=== PATIENT | male | born 1950 | race Caucasian/White ===

== ENCOUNTER 2018-03-26 15:40 | Outpatient (CLI) | payer MEDICARE, OTHER ==
--- NOTE | 2018-03-27 23:26 | DN ---
DATE OF STUDY: 03/26/2018 PROCEDURE: Bilateral Doppler examination was performed on 03/26/2018. On the right, femoral, poplit eal, posterior tibial and dorsalis pedis waveforms are biphasic with good peaked wave forms. On the left, femoral, popliteal, posterior tibial and dorsalis pedis waveforms are biphasic with good peaked wave forms. Ankle brachial indices on the right, ankle brachial index is 1.01. On the left, ankle brachial index is 0.93. IMPRESSION: Normal Doppler study.
== END 2018-03-26 15:41 | disposition home or self-care (01) ==
LOC: ULT 15:40
PROVIDERS: ATTEND Podiatrist
DX: I73.9 Peripheral vascular disease, unspecified (principal); E11.9 Type 2 diabetes mellitus without complications
CPT/HCPCS: 93922

== ENCOUNTER 2018-10-25 10:37 | Outpatient (CLI) | payer MEDICARE, OTHER ==
[2018-10-25 12:46] LABS: #Basophils 0.1 thou/uL (0.0-0.2); #Eosinphils 0.2 thou/uL (0.0-0.7); #Lymphocytes 1.7 thou/uL (1.20-3.40); #Monocytes 0.5 thou/uL (0.11-0.59); %Basophils 0.9 % (0.0-1.0); %Eosinophils 2.5 % (0.0-10.0); %Lymphocytes 26.2 % (21.0-51.0); %Monocytes 7.9 % (0.0-10.0); %Neutrophils 62.6 % (42.0-75.0); Hemoglobin 12.1 g/dL (14.0-18.0); Mean Corpuscular HGB CONC 33.3 g/dL (32.0-36.0); Mean Corpuscular Hemoglobin 29.6 pg (27.0-31.0); Mean Corpuscular Volume 88.7 fL (78.0-98.0); Mean Platelet Volume 7.3 fL (7.4-10.4); Platelet Count 253 thou/uL (130-400); RBC Distribution Width 13.3 % (11.5-14.5); Red Blood Cell (RBC) Count 4.09 mill/uL (4.70-6.10); White Blood Cell (WBC) Count 6.3 thou/uL (4.8-10.8)
[2018-10-25 13:07] LABS: ALT (SGPT) 11 U/L (8-55); AST (SGOT) 13 U/L (5-34); Albumin 3.8 g/dL (3.4-4.8); Alkaline Phosphatase 90 U/L (40-150); Anion Gap 14 mmol/L (10-20); BUN (Urea Nitrogen) 23 mg/dL (8.4-25.7); Bilirubin, Total 0.4 mg/dL (0.2-1.2); Calc. Creatinine Clearance 0 mL/min (70-130); Calcium 9.7 mg/dL (7.8-10.44); Carbon Dioxide 23 mmol/L (23-31); Chloride 103 mmol/L (98-107); Estimated GFR-MDRD 47; Globulin 3.3 g/dL (2.4-3.5); Glucose 255 mg/dL (80-115); Potassium 4.1 mmol/L (3.5-5.1); Protein, Total 7.1 g/dL (5.8-8.1); Sodium 136 mmol/L (136-145)
--- NOTE | 2018-10-25 13:18 | RAD ---
TWO VIEWS CHEST: DATE: 10/25/2018. PROVIDED CLINICAL HISTORY: Preop. FINDINGS: Comparison 05/07/2013. Cardiac and mediastinal silhouette is within normal limits. Left subclavian c ardiac pacing device is again noted with the tips overlying the expected locations of RA and RV. No focal consolidation, pleural fluid, or pneumothorax apparent. IMPRESSION: No evidence for an acute cardiopulmonary process. POS: [facility]
--- NOTE | 2018-10-25 17:09 | EKG ---
Test Reason : Blood Pressure : / mmHG Vent. Rate : 079 BPM Atrial Rate : 079 BPM P-R Int : 140 ms QRS Dur : 120 ms QT Int : 424 ms P-R-T Axes : 047 093 035 degrees QTc Int : 486 ms Normal sinus rhythm Right bundle branch block Abnormal ECG When compared with ECG of 13-OCT-2013 07:34, Nonspecific T wave abnormality has replaced inverted T waves in Inferior leads Confirmed by ALCIRA VALENCIA, DR. Orta ([id number]) on 10/25/2018 5:09:06 PM Referred By: ENEDELIA Confirmed By:DR. Marivel ELI MD
== END 2018-10-25 10:38 | disposition home or self-care (01) ==
LOC: LABBT 10:37
PROVIDERS: ATTEND Internal Medicine Cardiovascular Disease
DX: Z01.818 Encounter for other preprocedural examination (principal)
CPT/HCPCS: 71045; 80053; 85025; 93005; 93010

== ENCOUNTER 2018-10-29 06:06 | Inpatient (IN) | payer MEDICARE, OTHER ==
[2018-10-29] MEDS ORDERED: Heparin 10,000 UNITS/1 ML VIAL ONE (06:32)
[2018-10-29] MEDS ORDERED: Fentanyl 100 MCG/2 ML VIAL ONE (07:07)
[2018-10-29] MEDS ORDERED: Midazolam HCl 2 mg/2 ml Vial ONE (07:07)
[2018-10-29 07:10] LABS: Cardiac Risk 4.8 (Less than 4.5)
[2018-10-29] MEDS ORDERED: Protamine Sulfate 50 MG/5 ML VIAL ONE ×2 (07:24)
[2018-10-29] MEDS ORDERED: Digoxin 0.25 MG TAB PO SCH (09:00)
[2018-10-29] MEDS ORDERED: Aspirin 325 mg Enteric Coated Tablet PO SCH (09:00)
[2018-10-29] MEDS ORDERED: [UNRECOGNIZED DRUG - REMARK] FS SCH (10:59)
--- NOTE | 2018-10-29 11:56 | HP ---
HISTORY: Reji Lei is a 68-year-old white male, wthat I have followed since March 2013. He was initially referred for 2 episodes of syncope. Both of these occur when he was walking and then he would find himself on the floor. He had an episode of supraventricular tachycardia on 30-day monitoring. He had an episode of wide-complex tachycardia. He underwent Lexiscan Cardiolite testing, which was probably normal without evidence of ischemia or fixed defect. It was felt that he should be admitted to undergo electrophysiology study. This was performed by Dr. Rodriguez. He did not have any inducible atrial or ventricular arrhythmias. With rapid atrial pacing, he did have right bundle-branch block aberrancy, which may have been the cause for his wide-complex tachycardia. He did have prolonged sinus node recovery times of 1721 milliseconds. It was felt that a permanent pacemaker was needed, which was placed by Dr. Rodriguez. He continued to have some syncopal episodes and I referred him back to Electrophysiology. They felt the recurrent syncope was most likely of noncardiac origin. There was no strong correlation between tachyarrhythmias seen on the pacemaker and his syncopal spells. However, there was some correlation between episode of atrial tachycardia and episode of chest pain. He was started on digoxin for increased vagal tone. In November 2013, he was placed on beta-jeremi. After starting the beta-jeremi, it did not appear that he had any further episodes of syncope. He has been followed in the office for his pacemaker and his hypercholesterolemia, although at times, he is noncompliant with the blood test for his cholesterol. He was going to undergo left foot surgery and so a cardiac PET test was scheduled. In the meantime, he apparently fell and fractured his ankle and had to go undergo operative repair of that in [place] and has an external fixation device in place. He underwent cardiac PET scanning, which revealed mild apical ischemia. There was moderate hypokinesis of the distal anterior wall, mild decreased myocardial thickening of the apex. With this finding, it was recommended that he will undergo cardiac catheterization. Risks of catheterization were discussed including , myocardial infarction, dye reaction, vascular injury, CVA, transfusion, limb loss, renal loss, etc. Also, risks of intervention with PTCA and/or stent placement were discussed - , myocardial infarction, emergent CABG, restenosis, stent thrombosis, vessel perforation, etc. With upcoming orthopedic surgery, it was felt that a bare- metal stent should be placed if needed. PAST MEDICAL HISTORY: Sleep apnea, hypercholesterolemia, hypertension, diabetes , recurrent syncope with prolonged sinus node recovery times. OPERATIONS: 1. Neck mass removal. 2. Pacemaker placement. 3. Previous leg surgeries. MEDICATIONS: 1. Simvastatin 40 mg daily. 2. Tresiba 100 units subcu. 3. NovoLog. 4. Metoprolol 200 ER q.a.m. 5. Jardiance 10 mg daily. 6. Metformin 1000 mg b.i.d. 7. Losartan 100 mg daily. 8. Doxycycline 100 mg daily. 9. Nifedipine 60 mg b.i.d. 10. Digoxin 0.25 mg daily. ALLERGIES: NONE. REVIEW OF SYSTEMS: A 10-point review of systems is unremarkable except as noted above. PHYSICAL EXAMINATION: VITAL SIGNS: Blood pressure 135/70, pulse of 75. HEENT: PERRL. NECK: Supple. CHEST: Clear. CARDIAC: S1 and S2 are normal without any S3, S4, or murmurs. ABDOMEN: Normal bowel sounds without tenderness. EXTREMITIES: Revealed trace edema of the left leg. No edema of the right leg. NEUROLOGICAL: Grossly intact. SKIN: Warm and dry. LABORATORY DATA: Pending. IMPRESSION: 1. Abnormal cardiac PET scan with finding of apical ischemia and wall motion abnormalities as noted above. It is recommended that he will undergo cardiac catheterization. 2. Preoperative cardiovascular examination prior to further orthopedic procedure on his left ankle and foot. 3. Status post cardiac pacemaker placement in April 2013. 4. Recurrent syncope prior to placement of the pacemaker. 5. History of supraventricular tachycardia. 6. History of wide-complex tachycardia, probably SVT with right bundle-branch block aberrancy, which was reproduced with rapid atrial pacing and electrophysiology study. 7. No inducible atrial or ventricular arrhythmias in electrophysiology study. 8. History of transient global amnesia. 9. Hypertension. 10. Hypercholesterolemia. 11. Diabetes. PLAN: The patient will undergo cardiac catheterization and indicated procedures. Risks have been discussed and he agrees to proceed. Job ID: [id number] MTDD
[2018-10-29] MEDS ORDERED: Iopamidol 370 76% 100 ML VIAL ONE (12:08)
[2018-10-29] MEDS ORDERED: Iopamidol 370 76% 50 ML VIAL FS ONE (12:08)
--- NOTE | 2018-10-29 12:29 | CON ---
DATE OF CONSULTATION: 10/29/2018 CHIEF COMPLAINT: Positive stress test. HISTORY OF PRESENT ILLNESS: The patient is a 68-year-old diabetic man with a history of supraventricular tachycardia, who has an external fixator. Fixator in place on his left lower extremity after the fracture of his ankle. Stress testing was done as a prelude to a more elective, more definitive repair of the fracture and that showed apical ischemia. Cardiac catheterization today demonstrated severe 3-vessel coronary artery disease including proximal LAD disease. PAST MEDICAL HISTORY: His past medical history is significant for hypertension, diabetes, supraventricular tachycardia, hypercholesterolemia. He has undergone dual-chamber pacemaker implantation. CURRENT MEDICATIONS: 1. Toprol-XL 200 mg a day. 2. Procardia XL 60 mg b.i.d. 3. Losartan 100 mg a day. 4. Digoxin 0.25 mg a day. 5. Zocor 40 mg at bedtime. 6. NovoLog insulin 35 units subcu t.i.d. 7. Metformin 1000 mg p.o. b.i.d. ALLERGIES: HE DENIES ANY MEDICAL ALLERGIES. SOCIAL HISTORY: He has never smoked. FAMILY HISTORY: Significant for recently diagnosed diabetes in his 90-year-old mother and diabetes in a younger sister. His father of complications related to lupus. He has no known history of coronary artery disease or cerebral vascular disease amongst first-degree relatives. REVIEW OF SYSTEMS: Negative for any transient eye, speech, facial, or extremity symptoms consistent with TIAs. He does have some persistent paresthesias and numbness in his left fourth and fifth fingers. He has not had any recent illnesses. PHYSICAL EXAMINATION: GENERAL: He is 6 feet tall, weighs 200 pounds, heart rate 61, blood pressure 150/74. HEENT: He has no xanthelasma. No JVD. No carotid bruits. CHEST: Clear to auscultation. He has a well-healed surgical scar. No palpable pacemaker in the left upper chest. He has regular rate and rhythm without obvious murmur or gallop. ABDOMEN: Soft and nontender. He has easily palpable radial pulses. His dorsalis pedis pulses are harder to appreciate but are palpable. He has an external fixator on his left lower leg and foot with swelling of that foot. He has no swelling of other foot. NEUROLOGIC: Grossly nonfocal. LABORATORY DATA: Showed a white count of 6.3, hemoglobin 12.1, hematocrit 36.3, and platelets 253,000. Electrolytes were normal. Glucose was 255, BUN 23, creatinine 1.48, calcium 9.7, protein 7.1, albumin 3.8. Triglycerides were 142, cholesterol 183, LDL 117, and HDL 38. His chest x-ray shows a relatively small heart, no obvious aortic knob calcifications, clear lung aguilera, and a dual-chamber pacemaker in place with lead insertion appearing to be left subclavian. Cardiac catheterization shows a right-dominant system. The mid right coronary proper has diffuse irregularity with one or two focal 60% lesions and then about 70% or 80% lesion proximally in his relatively large posterolateral branch. His left main is normal. He has a long 80% or so lesion in the LAD starting just proximal to the first septal indoor plant technician and appearing to extend into relatively high first diagonal. He has about a 90% lesion in an OM1 that bifurcates out towards the apex, very small OM2, and then diffuse irregularity with at least two 60% or 70% lesions in circumflex leading out to the terminal obtuse marginal. LVEF is around 50% to 60%. LV pressures were 147/0 with an EDP of 4 and 134/1 with an EDP of 7. Aortic pressure on pullback from 147/0 reading was 138/45 with a mean of 80. IMPRESSION AND RECOMMENDATIONS: Diabetic man with an asymptomatic proximal left anterior descending lesion in the face of diffuse 3-vessel coronary disease. I have discussed with him that there is a paucity of data to support the contention that coronary revascularization decreases risk in that prior to other surgical procedures that his pattern of coronary artery disease in the face of his diabetes is one for which surgical revascularization is recommended even in the asymptomatic setting as this would appear to be. I will plan on hydrating him during the day today and doing coronary artery bypass grafting tomorrow. Job ID: [id number]
[2018-10-29] MEDS ORDERED: CEFAZOLIN 2 GM/50 ML-DEXTROSE 2 GM in Premix Bag 1 BAG IVPB SCH (19:15)
[2018-10-29] MEDS: Mupirocin 2% Ointment 22 GM Tube TOP SCH ×2 (19:57→21:16)
[2018-10-29] MEDS: NIFEdipine XL 60 MG TAB PO SCH ×2 (19:57→21:16)
[2018-10-29] MEDS: Doxycycline 100 MG CAP PO SCH ×2 (19:57→21:15)
[2018-10-29] MEDS: Losartan 25 MG TAB PO SCH (19:57)
[2018-10-29] MEDS: Sodium Chloride 0.45% 1,000 ML IV SCH ×2 (19:58→21:17)
[2018-10-29] MEDS ORDERED: HumaLOG 300 UNITS/3 ML VIAL SC PRN ×2 (20:34)
[2018-10-29] MEDS ORDERED: Dextrose 5% in Water 1,000 ML IV PRN (20:34)
[2018-10-29] MEDS ORDERED: Dextrose 50% Abboject 50 ML SYRINGE SLOW IVP PRN (20:34)
[2018-10-29] MEDS ORDERED: Sodium Chloride 0.9% 1,000 ML IV SCH (20:38)
[2018-10-29] MEDS ORDERED: Nitroglycerin 0.4 MG TAB (25 Tab Bottle) SL PRN (20:38)
[2018-10-29] MEDS ORDERED: traMADol HCl 50 MG TAB PO PRN (20:38)
[2018-10-29] MEDS ORDERED: Acetaminophen/Codeine 30-300mg Tablet PO PRN ×2 (20:38)
[2018-10-29] MEDS ORDERED: Sodium Chloride 0.9% 200 ML IV SCH (20:38)
[2018-10-29] MEDS ORDERED: Docusate 100 MG CAP PO SCH (21:00)
[2018-10-29] MEDS ORDERED: Rosuvastatin 20 MG TAB PO SCH (21:00)
[2018-10-29] MEDS ORDERED: Atorvastatin Calcium 40 MG TAB PO SCH (21:00)
[2018-10-29] MEDS: Famotidine 20 MG TAB PO SCH (23:53)
[2018-10-30] MEDS: Sodium Chloride 0.45% 1,000 ML IV SCH (01:47)
--- NOTE | 2018-10-30 03:12 | CON ---
DATE OF CONSULTATION: PRIMARY CARE PHYSICIAN: Fer Chris in [place]. PRIMARY TEAM: Cardiology, Dr. Diaz. REASON FOR CONSULTATION: Medical management. HISTORY OF PRESENT ILLNESS: This is a 68-year-old white male with a known history of insulin-dependent diabetes mellitus, hypertension, and hyperlipidemia, who recently had a fracture of his foot, had some osteomyelitis, complicating plate placement in his foot, and then had a fracture of his leg from a amber that was placed during the previous surgery. He was being cleared for another surgery, had a stress test done that was abnormal, and so Dr. Diaz admitted him today to do a cardiac catheterization. The patient has not had any cardiac symptoms. No chest pain. No palpitations. No difficulty breathing. He had his cardiac catheterization earlier this morning, this showed 3-vessel disease including his left anterior descending, and so Dr. Diaz consulted Dr. Cordon with Cardiovascular Surgery for CABG, plan is to do that tomorrow morning. PAST MEDICAL HISTORY: 1. Diabetes mellitus type 2, on insulin for the last 5 years, complicated by diabetic retinopathy. 2. Symptomatic bradycardia with pacemaker placement. 3. Hypertension. 4. Hyperlipidemia. 5. Obstructive sleep apnea, on CPAP nightly, followed by Dr. Osullivan. PAST SURGICAL HISTORY: 1. Pacemaker placement in 2012. 2. Right ankle surgery. 3. Laser surgery to the eye. 4. Neck surgery. 5. Left foot fracture and left leg fracture, status post multiple surgeries. ALLERGIES: ATORVASTATIN CAUSES NUMBNESS IN HANDS, OTHER STATINS DO NOT CAUSE THIS. CURRENT MEDICATIONS: 1. Metformin 1000 mg twice a day. 2. Digoxin 0.25 mg daily. 3. Doxycycline 100 mg twice a day. 4. NovoLog 35 units subcu before each meal. 5. Losartan 100 mg daily. 6. Metoprolol-XL 200 mg daily. 7. Bactroban ointment applied to wounds on left foot and leg. 8. Procardia XL 60 mg twice a day. 9. Simvastatin 40 mg at night. SOCIAL HISTORY: The patient is , lives with his . No tobacco, alcohol, or illicit drug use. FAMILY HISTORY: Significant for father with a questionable history of lupus, mother with diabetes, and a younger sister with diabetes as well. REVIEW OF SYSTEMS: CONSTITUTIONAL: No fevers. No chills. He has had some significant weight loss after being in the hospitals for so long for his left foot. EYES: No double vision or blurred vision. ENT: No congestion or drainage or sore throat. CARDIOVASCULAR: No chest pain. No palpitations or racing heart. PULMONARY: He has had a little bit of cough with minimal sputum for the last couple of weeks. No shortness of breath. No wheezing. GASTROINTESTINAL: No abdominal pain. No nausea or vomiting. No diarrhea or constipation. GENITOURINARY: No dysuria or hematuria. MUSCULOSKELETAL: See HPI. No other musculoskeletal complaints besides his left leg and foot. NEUROLOGIC: He has some chronic numbness in bilateral lower extremities from his diabetes. Otherwise, no numbness, tingling, or focal weakness. PHYSICAL EXAMINATION: VITAL SIGNS: Blood pressure 161/73, pulse 60, respirations 16, O2 saturation 95% on room air, and temperature 97.9. GENERAL: This is a well-developed, well-nourished white male, in no acute distress. HEENT: Pupils equal, round, and reactive to light. Oropharynx is clear without lesions, erythema, or exudate. NECK: Supple. No lymphadenopathy. No thyroid nodules or enlargement. No JVD. HEART: Regular rate and rhythm. No murmurs, rubs, or gallops. LUNGS: Clear to auscultation bilaterally. No wheezes, crackles, or rhonchi. ABDOMEN: Soft, nontender to palpation. Normoactive bowel sounds. No hepatosplenomegaly or other masses. EXTREMITIES: The patient has fixation rods and a cage over his left leg and foot. No surrounding cellulitis or evidence of infection. SKIN: No rashes or other lesions. NEUROLOGIC: He has intact strength and sensation in all extremities. No facial droop. PSYCHIATRIC: Alert and oriented x3. Normal mood and affect. LABORATORY DATA: CBC done preoperatively showed a normal white blood cell count, hemoglobin of 12.1, hematocrit 36.3, and platelet count 253. Coagulation profile showed a normal clotting time. Complete metabolic panel showed elevated creatinine of 1.48 and glucose of 255, the rest is normal. His lipid profile showed a total cholesterol of 183, LDL of 117, triglycerides were 142. ASSESSMENT: 1. Three-vessel coronary artery disease. Plan for coronary artery bypass graft in the morning. 2. Hypertension, currently elevated. Resuming home blood pressure medications and this will be controlled carefully after the surgery anibal in the ICU. 3. Diabetes mellitus type 2, insulin dependent. We will give insulin as scheduled with meals and we will give him moderate sliding scale coverage. We will hold metformin for now due to his elevated creatinine and recent cardiac catheterization and planned CABG. 4. Hyperlipidemia. Resume the patient's statin. 5. Gastrointestinal prophylaxis. We will put the patient on Pepcid twice a day. 6. Code status: The patient is a full code. Should he be incapacitated, his would be his medical decision maker, her name is Kaylee Lei. Job ID: [id number]
[2018-10-30] MEDS: Losartan 25 MG TAB PO SCH (05:29)
[2018-10-30] MEDS ORDERED: CEFAZOLIN 2 GM/50 ML BAG ONE (06:14)
[2018-10-30] MEDS ORDERED: Albumin 5% 500 ML ONE (06:30)
[2018-10-30] MEDS ORDERED: Heparin 10,000 UNITS/1 ML VIAL 30,000 UNITS in Sodium Chloride 0.9% 1,000 ML FS SCH (06:45)
[2018-10-30] MEDS ORDERED: Dexamethasone 4 mg/ml Vial ONE (07:12)
[2018-10-30] MEDS ORDERED: Bupivacaine HCl 0.5%/Epinephrine 1:200,000/PF 30 ml Vial ONE (07:12)
[2018-10-30] MEDS ORDERED: Fentanyl 250 MCG/5 ML VIAL ONE (07:15)
[2018-10-30] MEDS ORDERED: Dexmedetomidine 200 MCG/2 ML VIAL ONE (07:16)
[2018-10-30] MEDS ORDERED: Midazolam HCl 5 mg/5 ml Vial ONE (07:16)
[2018-10-30] MEDS ORDERED: Midazolam HCl 2 mg/2 ml Vial ONE (07:20)
[2018-10-30] MEDS ORDERED: HumaLOG 300 UNITS/3 ML VIAL SC SCH (08:00)
[2018-10-30] MEDS ORDERED: Nitroglycerin 50 MG/250 ML BOT 250 ML IVPB PRN (12:20)
[2018-10-30] MEDS ORDERED: Potassium Chloride 20 MEQ/100 ML PREMIX BAG IVPB PRN (12:20)
[2018-10-30] MEDS ORDERED: niCARdipine HCl 25 MG in Sodium Chloride 0.9% 250 ML 240 ML IVPB PRN (12:20)
[2018-10-30] MEDS ORDERED: Post-Op Insulin Drip Protocol IVPB ONE (12:20)
[2018-10-30] MEDS ORDERED: Morphine 2 MG/ML SYRINGE SLOW IVP PRN (12:20)
[2018-10-30] MEDS ORDERED: HYDROcodone/Acetaminophen 5/325 mg Tablet PO PRN (12:20)
[2018-10-30] MEDS ORDERED: Ondansetron PF 4 MG/2 ML Vial IVP PRN (12:20)
[2018-10-30] MEDS ORDERED: Bisacodyl 10 MG SUPP PR PRN (12:20)
[2018-10-30] MEDS ORDERED: Fentanyl 100 MCG/2 ML VIAL SLOW IVP PRN (12:20)
[2018-10-30] MEDS ORDERED: Acetaminophen 325 MG TAB PO PRN (12:20)
[2018-10-30] MEDS ORDERED: CEFAZOLIN/Water 2 GM/20 ML SYRINGE SLOW IVP SCH (12:20)
[2018-10-30] MEDS ORDERED: Guaifenesin DM 100-10/5 ML UDCUP PO PRN (12:20)
[2018-10-30] MEDS ORDERED: DOPamine 400 MG/D5W 250 ML 250 ML IVPB PRN (12:20)
[2018-10-30] MEDS ORDERED: Promethazine HCl 25 MG/ML VIAL IM PRN (12:20)
[2018-10-30] MEDS ORDERED: Mag-Al 1200 mg/1200 mg/30 ML UDCUP PO PRN (12:20)
[2018-10-30] MEDS ORDERED: Hetastarch 6% 500 ML 500 ML IVPB PRN (12:20)
[2018-10-30] MEDS ORDERED: hydrALAZINE 20 MG/ML VIAL SLOW IVP PRN (12:20)
[2018-10-30] MEDS ORDERED: Bisacodyl 5 MG TAB PO PRN (12:20)
[2018-10-30] MEDS ORDERED: Dextrose 5% in Water 1,000 ML IV PRN (12:54)
[2018-10-30] MEDS ORDERED: HUMULIN R 100 UNITS in Sodium Chloride 0.9% 100 ML IVPB SCH (12:54)
[2018-10-30] MEDS ORDERED: Dextrose 50% Abboject 50 ML SYRINGE SLOW IVP PRN (12:54)
[2018-10-30 12:56] LABS: #Eosinphils 0.1 thou/uL (0.0-0.7); #Lymphocytes 1.5 thou/uL (1.20-3.40); #Neutrophils 6.6 thou/uL (1.40-6.50); %Basophils 0.4 % (0.0-1.0); %Eosinophils 1.1 % (0.0-10.0); %Lymphocytes 16.1 % (21.0-51.0); %Monocytes 10.5 % (0.0-10.0); %Neutrophils 71.9 % (42.0-75.0); Hemoglobin 9.6 g/dL (14.0-18.0); Mean Corpuscular HGB CONC 33.3 g/dL (32.0-36.0); Mean Corpuscular Hemoglobin 29.4 pg (27.0-31.0); Mean Corpuscular Volume 88.2 fL (78.0-98.0); Mean Platelet Volume 6.9 fL (7.4-10.4); Platelet Count 181 thou/uL (130-400); Red Blood Cell (RBC) Count 3.27 mill/uL (4.70-6.10); White Blood Cell (WBC) Count 9.2 thou/uL (4.8-10.8)
[2018-10-30 13:03] LABS: INR-International Normal Ratio 1.4; PTT 25.5 SEC (22.9-36.1); Prothrombin Time 16.8 SEC (12.0-14.7)
[2018-10-30] MEDS: Fentanyl 100 MCG/2 ML VIAL SLOW IVP PRN ×3 (13:08→16:44)
[2018-10-30 13:10] LABS: Actual Bicarbonate (HCO3a) 21.1 mEq/L (22-28); Base Excess (BEa) -3.1 mEq/L (-2.0 to +3.0); CO2 Tension 34.7 mmHg (35.0-45.0); Calcium, Ionized 1.25 mmol/L (1.12-1.30); Carboxyhemoglobin (COHb) 0.5 gm% (0.0-3.0); Hemoglobin (Hb) 10.3 g/dL (14.0-18.0); O2 Tension (PaO2) 253.6 mmHg (> 80.0); Potassium - ABG Lab 3.89 mmol/L (3.70-5.30)
[2018-10-30] MEDS: Sodium Chloride 0.9% 1,000 ML IV SCH ×2 (13:10→23:07)
[2018-10-30 13:11] LABS: ALV-art Gradient 130.825 (0-20); Puncture Site ALINE
[2018-10-30 13:16] LABS: Anion Gap 9 mmol/L (10-20); BUN (Urea Nitrogen) 19 mg/dL (8.4-25.7); Calc. Creatinine Clearance 75 mL/min (70-130); Calcium 8.8 mg/dL (7.8-10.44); Carbon Dioxide 23 mmol/L (23-31); Chloride 110 mmol/L (98-107); Estimated GFR-MDRD 60; Glucose 102 mg/dL (80-115); Potassium 4.1 mmol/L (3.5-5.1); Sodium 138 mmol/L (136-145)
[2018-10-30] MEDS: Famotidine 20 MG TAB PO SCH (13:27)
--- NOTE | 2018-10-30 13:37 | RAD ---
PORTABLE CHEST: DATE: 10/30/2018. PROVIDED CLINICAL HISTORY: Post open heart. FINDINGS: Comparison 10/25/2018. Median sternotomy changes are now seen. Left subclavian cardiac pacing device is again noted with lead tips in the similar positions. Endotracheal tube was present with tip whic h projects in the region of the thoracic inlet. Right subclavian central line is noted, the tip of w hich overlies the expected location of right atrium. The supine nature of the study limits sensitiv ity for detection of pneumothorax. Parenchymal opacity at the medial right lung apex is noted. IMPRESSION: 1. Interval postoperative change. 2. Parenchymal opacity at the medial right lung apex which may reflect subsegmental atelectasis. As piration could also be considered. Followup is recommended. POS: [facility]
[2018-10-30] MEDS ORDERED: Norepinephrine 8 MG/0.9% NS 250 ML ONE (13:45)
--- NOTE | 2018-10-30 13:50 | OP ---
DATE OF PROCEDURE: 10/30/2018 PREOPERATIVE DIAGNOSIS: Coronary artery disease. PROCEDURES PERFORMED: Coronary artery bypass graft x4, good quality BRAND with 2 mm LAD, saphenous vein satisfactory to a 1.5 mm diagonal and probably a 1.5 mm right posterior lateral in the groove, radial artery to an obtuse marginal one, 1.5 to 2 mm. SEMICONDUCTOR ENGINEER: Bhanu Cordon MD. DESCRIPTION OF PROCEDURE: After adequate anesthesia had been obtained, the patient was prepped and draped and I did a left radial artery harvest, ensuring good collateral flow with Roderick test and plethysmography, while Dr. Cordon did an endovascular vein harvest of the right greater saphenous vein. Following completion of the radial harvest, I performed a median sternotomy harvesting a left internal mammary artery without entering the chest. The patient was heparinized. Mammary divided distally and passed posterior to the thymus gland. The aorta and right atrium were cannulated. Cardiopulmonary bypass begun. After inspecting vessels for grafting, the aorta was cross clamped and liter of cold blood cardioplegia was given and the four distal anastomosis completed. Distal circumflex was too small to graft. Following completion of this, the cross-clamp was removed, partial occluding clamp placed into venous anastomosis, placed on the aortic root and marked with rings into the hobbs of the diagonal graft with the radial anastomosis placed. Following this, the patient was weaned from cardiopulmonary bypass. Cannula was removed. Protamine was given systemically and the aortic cannulation site secured with a 4-0 Prolene suture. Temporarily, atrial pacing wires were placed. The sternum was reapproximated over two mediastinal drains with #7 interrupted wire using vancomycin paste on the sternal edges, platelet rich blood, and platelet poor plasma. The patient was taken to the ICU in guarded condition. Job ID: [id number]
[2018-10-30] MEDS ORDERED: Albumin 25% 25 GM/100 ML BOT ONE (16:56)
[2018-10-30] MEDS ORDERED: PROPOFOL 200 MG/20 ML VIAL ONE (16:56)
[2018-10-30] MEDS ORDERED: Cardioplegic Soln 1,000 ML BAG ONE (16:56)
[2018-10-30] MEDS ORDERED: Magnesium 5 GM/10 ML VIAL ONE (16:56)
[2018-10-30] MEDS ORDERED: Sodium Bicarb 50 MEQ/50 ML VIAL ONE (16:56)
[2018-10-30] MEDS ORDERED: Aminocaproic Acid 5 GM/20 ML VIAL ONE (16:56)
[2018-10-30] MEDS ORDERED: Lidocaine 2% PF 100 mg/5 ml Syringe ONE (16:56)
[2018-10-30] MEDS ORDERED: Mannitol 12.5 GM/50 ML ONE (16:56)
[2018-10-30] MEDS ORDERED: Potassium Chloride 60 MEQ/30 ML VIAL ONE (16:56)
[2018-10-30] MEDS ORDERED: Vecuronium 10 MG VIAL ONE (16:56)
[2018-10-30] MEDS ORDERED: Thrombin 5000 UNITS/5 ML VIAL ONE (16:56)
[2018-10-30] MEDS ORDERED: Calcium Chloride 1 GM/10 ML Abboject SYRINGE ONE (16:56)
[2018-10-30] MEDS ORDERED: Papaverine 60 MG/2 ML VIAL ONE (16:56)
[2018-10-30] MEDS ORDERED: Heparin 30,000 units/30 ml VIAL ONE (16:56)
[2018-10-30] MEDS ORDERED: Protamine Sulfate 250 MG/25 ML VIAL ONE (16:56)
[2018-10-30] MEDS ORDERED: Heparin 5,000 UNITS/ML VIAL ONE (16:56)
--- NOTE | 2018-10-30 17:00 | EKG ---
Test Reason : POST CABG Blood Pressure : / mmHG Vent. Rate : 069 BPM Atrial Rate : 069 BPM P-R Int : 100 ms QRS Dur : 122 ms QT Int : 432 ms P-R-T Axes : -27 078 033 degrees QTc Int : 462 ms Electronic atrial pacemaker Right bundle branch block Abnormal ECG When compared with ECG of 25-OCT-2018 11:32, Electronic atrial pacemaker has replaced Sinus rhythm ST elevation now present in Anterior leads Confirmed by DR. Alice MELLO ([id number]) on 10/30/2018 5:00:02 PM Referred By: RITA Confirmed By:DR. Alice MELLO
[2018-10-30 18:37] LABS: Hemoglobin 9.8 g/dL (14.0-18.0)
[2018-10-30] MEDS: HYDROcodone/Acetaminophen 5/325 mg Tablet PO PRN (18:42)
[2018-10-30 18:51] LABS: Potassium 4.5 mmol/L (3.5-5.1)
[2018-10-30] MEDS ORDERED: Famotidine/PF 20 mg/2ml Vial SLOW IVP SCH (21:00)
[2018-10-30] MEDS: CEFAZOLIN 2 GM/50 ML-DEXTROSE 2 GM in Premix Bag 1 BAG IVPB SCH (21:08)
[2018-10-31] MEDS: CEFAZOLIN 2 GM/50 ML-DEXTROSE 2 GM in Premix Bag 1 BAG IVPB SCH ×2 (04:16→11:54)
[2018-10-31 04:21] LABS: #Monocytes 0.8 thou/uL (0.11-0.59); #Neutrophils 6.3 thou/uL (1.40-6.50); %Basophils 0.4 % (0.0-1.0); %Eosinophils 0.2 % (0.0-10.0); %Lymphocytes 12.2 % (21.0-51.0); %Neutrophils 77.2 % (42.0-75.0); Hemoglobin 9.8 g/dL (14.0-18.0); Mean Corpuscular HGB CONC 32.9 g/dL (32.0-36.0); Mean Corpuscular Hemoglobin 29.6 pg (27.0-31.0); Mean Corpuscular Volume 90.1 fL (78.0-98.0); Mean Platelet Volume 6.8 fL (7.4-10.4); Platelet Count 193 thou/uL (130-400); RBC Distribution Width 13.3 % (11.5-14.5); White Blood Cell (WBC) Count 8.1 thou/uL (4.8-10.8)
[2018-10-31 04:39] LABS: Anion Gap 12 mmol/L (10-20); BUN (Urea Nitrogen) 20 mg/dL (8.4-25.7); Calc. Creatinine Clearance 74 mL/min (70-130); Calcium 8.7 mg/dL (7.8-10.44); Carbon Dioxide 21 mmol/L (23-31); Chloride 109 mmol/L (98-107); Estimated GFR-MDRD 59; Glucose 135 mg/dL (80-115); Potassium 4.7 mmol/L (3.5-5.1); Sodium 137 mmol/L (136-145)
[2018-10-31] MEDS: HYDROcodone/Acetaminophen 5/325 mg Tablet PO PRN ×3 (05:06→19:33)
--- NOTE | 2018-10-31 08:28 | RAD ---
CHEST ONE VIEW: History: Follow up open heart surgery. Comparison: 10-30-18 FINDINGS: Post underlying sternotomy. Left ICD. Right central line. Endotracheal tube has been removed. Minimal bibasilar linear and parenchymal changes, nonspecific, possibly mild subsegmental atelectasis and/or post-operative change. No pneumothorax. IMPRESSION: Patchy bibasilar parenchymal changes, overall stable. No pneumothorax or other new process. POS: [facility]
[2018-10-31] MEDS: Digoxin 0.25 MG TAB PO SCH (09:24)
[2018-10-31] MEDS: Doxycycline 100 MG CAP PO SCH ×2 (09:25→21:22)
[2018-10-31] MEDS: Aspirin 325 MG TAB PO SCH (09:25)
[2018-10-31] MEDS: Enoxaparin Sodium 40 MG/0.4 ML SYRINGE SC SCH (09:26)
[2018-10-31] MEDS: HumaLOG 300 UNITS/3 ML VIAL SC SCH ×3 (09:27→21:21)
[2018-10-31] MEDS: Metoprolol Tartrate 25 MG TAB PO SCH ×2 (09:33→21:22)
[2018-10-31 14:33] LABS: Actual Bicarbonate (HCO3a) 23.3 mEq/L (22-28); Analyzer IN Cardio OR; Base Excess (BEa) -0.2 mEq/L (-2.0 to +3.0); CO2 Tension 33.7 mmHg (35.0-45.0); Calcium, Ionized 1.11 mmol/L (1.12-1.30); Hemoglobin (Hb) 10.7 g/dL (14.0-18.0); O2 Tension (PaO2) 299.9 mmHg (> 80.0); Potassium - ABG Lab 4.38 mmol/L (3.70-5.30); pH, Arterial 7.46 (7.35-7.45)
[2018-10-31 14:34] LABS: Analyzer IN Cardio OR; Base Excess (BEa) -2.4 mEq/L (-2.0 to +3.0); CO2 Tension 41.8 mmHg (35.0-45.0); Calcium, Ionized 1.16 mmol/L (1.12-1.30); Carboxyhemoglobin (COHb) 0.3 gm% (0.0-3.0); Hemoglobin (Hb) 10.3 g/dL (14.0-18.0); O2 Tension (PaO2) 490.1 mmHg (> 80.0); Potassium - ABG Lab 3.87 mmol/L (3.70-5.30); pH, Arterial 7.36 (7.35-7.45)
[2018-10-31 14:34] LABS: Actual Bicarbonate (HCO3a) 24.5 mEq/L (22-28); Analyzer IN Cardio OR; Base Excess (BEa) -0.8 mEq/L (-2.0 to +3.0); CO2 Tension 43.6 mmHg (35.0-45.0); Calcium, Ionized 1.25 mmol/L (1.12-1.30); Carboxyhemoglobin (COHb) 0.1 gm% (0.0-3.0); Hemoglobin (Hb) 7.9 g/dL (14.0-18.0); Potassium - ABG Lab 4.26 mmol/L (3.70-5.30); pH, Arterial 7.37 (7.35-7.45)
[2018-10-31 14:34] LABS: Actual Bicarbonate (HCO3a) 23.7 mEq/L (22-28); Analyzer IN Cardio OR; Base Excess (BEa) -0.8 mEq/L (-2.0 to +3.0); Calcium, Ionized 1.07 mmol/L (1.12-1.30); Carboxyhemoglobin (COHb) 0.6 gm% (0.0-3.0); Hemoglobin (Hb) 7.4 g/dL (14.0-18.0); Potassium - ABG Lab 4.05 mmol/L (3.70-5.30); pH, Arterial 7.41 (7.35-7.45)
[2018-10-31 14:35] LABS: Analyzer IN Cardio OR; Base Excess (BEa) -2.3 mEq/L (-2.0 to +3.0); CO2 Tension 35.5 mmHg (35.0-45.0); Calcium, Ionized 1.29 mmol/L (1.12-1.30); Carboxyhemoglobin (COHb) 0.3 gm% (0.0-3.0); Hemoglobin (Hb) 7.9 g/dL (14.0-18.0); Potassium - ABG Lab 4.09 mmol/L (3.70-5.30); pH, Arterial 7.41 (7.35-7.45)
[2018-10-31 14:36] LABS: Puncture Site ALINE
[2018-10-31 14:37] LABS: O2 Tension (PaO2) 509.1 mmHg (> 80.0); Puncture Site ALINE
[2018-10-31 14:38] LABS: O2 Tension (PaO2) 558.4 mmHg (> 80.0); Puncture Site ALINE
[2018-10-31 14:39] LABS: Puncture Site ALINE
[2018-10-31 14:40] LABS: Puncture Site ALINE
[2018-10-31] MEDS: Sodium Chloride 0.9% 1,000 ML IV SCH ×2 (16:10→23:15)
[2018-10-31] MEDS ORDERED: Rosuvastatin 20 MG TAB PO SCH (21:00)
[2018-10-31] MEDS: Insulin Regular 300 UNITS/3 ML VIAL SC PRN (21:23)
--- NOTE | 2018-10-31 22:47 | PDOC.PN ---
- Subjective Encounter Start Date: 10/31/18 Encounter Start Time: 14:00 Patient seen and examined for med mngt. No new complaints. No overnight events - Objective Resuscitation Status - Order Detail: 10/29/18 20:35 Resuscitation Status Routine Resuscitation Status: FULL: Full Resuscitation Discussed with: Patient CORBY Reviewed: Yes Vital Signs & Weight: Vital Signs (12 hours) Temp Pulse Ox 10/31/18 20:00 97.7 F 95 10/31/18 16:00 96 10/31/18 15:00 98.3 F 10/31/18 11:00 97.8 F Weight Weight 200 lb Most Recent Monitor Data Heart Rate from ECG 80 NIBP 125/48 NIBP BP-Mean 92 Respiration from ECG 15 SpO2 96 I&O: 10/30/18 10/31/18 11/01/18 06:59 06:59 06:59 Intake Total 1380 2508.9 1667 Output Total 1300 875 470 Balance 80 1633.9 1197 Result Diagrams: 10/31/18 04:17 10/31/18 04:17 Additional Labs: Accuchecks 10/31/18 10/31/18 10/31/18 21:09 15:30 12:10 POC Glucose 161 H 120 H 118 H 10/31/18 10/31/18 10/31/18 09:35 08:39 07:31 POC Glucose 157 H 145 H 157 H 10/31/18 10/31/18 10/31/18 06:16 05:16 04:16 POC Glucose 141 H 153 H 145 H 10/31/18 10/31/18 10/31/18 03:13 02:12 01:18 POC Glucose 127 H 141 H 122 H 10/31/18 10/30/18 10/30/18 00:11 23:09 22:06 POC Glucose 113 H 117 H 135 H 10/30/18 10/30/18 21:08 07:23 POC Glucose 120 H 345 H EKG Reviewed by me: Yes (Tele SR) Phys Exam - Physical Examination Constitutional: NAD Neck: no JVD Neurological: moves all 4 limbs Psychiatric: A&O x 3 Dx/Plan (1) DM2 (diabetes mellitus, type 2) Status: Chronic Qualifiers: Chronic kidney disease stage: stage 2 (mild) (2) HTN (hypertension) Code(s): I10 - ESSENTIAL (PRIMARY) HYPERTENSION Status: Chronic (3) HLD (hyperlipidemia) Code(s): E78.5 - HYPERLIPIDEMIA, UNSPECIFIED Status: Chronic (4) CHRIS (obstructive sleep apnea) Code(s): G47.33 - OBSTRUCTIVE SLEEP APNEA (ADULT) (PEDIATRIC) Status: Chronic - Plan cont current plan of care, plan discussed w/ family, DVT proph w/SCDs Cont sliding scale with 15 units Humalog TID -: Cont ASA/BB/Statins -: Cont CPAP HS Review of Systems - Review of Systems Respiratory: negative: Cough, Dry, Shortness of Breath, Hemoptysis, SOB with Excertion, Pleuritic Pain, Sputum, Wheezing Cardiovascular: negative: chest pain, palpitations, orthopnea, paroxysmal nocturnal dyspnea, edema, light headedness, other - Medications/Allergies Allergies/Adverse Reactions: Allergies Allergy/AdvReac Type Severity Reaction Status Date / Time No Known Allergies Allergy Verified 10/30/18 04:56 Medications: Current Medications Acetaminophen (Tylenol) 650 mg PO Q6H PRN PRN Reason: Headache/Fever Or Mild Pain Hydrocodone Bitart/Acetaminophen ([place] 5/325) 1 tab PO Q4H PRN PRN Reason: Moderate Pain (4-6) Hydrocodone Bitart/Acetaminophen ([place] 5/325) 2 tab PO Q4H PRN PRN Reason: Severe Pain (7-10) Last Admin: 10/31/18 19:33 Dose: 2 tab Al Hydroxide/Mg Hydroxide (Maalox) 30 ml PO Q4H PRN PRN Reason: Indigestion Albuterol/Ipratropium (Duoneb) 3 ml NEB [id number] PRN PRN Reason: SHORTNESS OF BREATH Aspirin (Aspirin) 325 mg PO DAILY [facility] Last Admin: 10/31/18 09:25 Dose: 325 mg Bisacodyl (Dulcolax) 10 mg PO Q12H PRN PRN Reason: Constipation Bisacodyl (Dulcolax) 10 mg [place] Q12H PRN PRN Reason: Constipation Dextrose/Water (Dextrose 50%) 25 gm SLOW IVP PRN PRN PRN Reason: PER HYPOGLYCEMIC PROTOCOL Digoxin (Lanoxin) 0.25 mg PO DAILY [facility] Last Admin: 10/31/18 09:24 Dose: 0.25 mg Doxycycline Hyclate (Vibramycin) 100 mg PO BID [facility] Last Admin: 10/31/18 21:22 Dose: 100 mg Enoxaparin Sodium (Lovenox) 40 mg SC 0900 [facility] Last Admin: 10/31/18 09:26 Dose: 40 mg Fentanyl (Sublimaze) 25 mcg SLOW IVP Q2H PRN PRN Reason: Moderate Pain (4-6) Stop: 11/01/18 12:15 Fentanyl (Sublimaze) 50 mcg SLOW IVP Q2H PRN PRN Reason: Severe Pain (7-10) Stop: 11/01/18 12:15 Last Admin: 10/30/18 16:44 Dose: 50 mcg Glucagon (Glucagon) 1 mg [place] PRN PRN PRN Reason: PER HYPOGLYCEMIC PROTOCOL Guaifenesin/Dextromethorphan (Robitussin Dm) 15 ml PO Q4H PRN PRN Reason: Cough Hydralazine HCl (Apresoline) 10 mg SLOW IVP Q6H PRN PRN Reason: To Maintain SBP< 140mmHG Dopamine HCl/Dextrose (Dopamine/D5w) 250 mls @ 0 mls/hr IVPB PRN PRN; Protocol PRN Reason: To maintain SBP > 90 mmHG Nicardipine HCl 25 mg/ Sodium (Chloride) 250 mls @ 0 mls/hr IVPB INF PRN; Protocol PRN Reason: To Maintain SBP< 140mmHG Nitroglycerin/Dextrose (Nitroglycerin 50 Mg/250 Ml Bot) 250 mls @ 0 mls/hr IVPB PRN PRN; Protocol PRN Reason: To Maintain SBP< 140mmHG Last Admin: 10/30/18 15:22 Dose: 250 mls Sodium Chloride (Normal Saline 0.9%) 1,000 mls @ 100 mls/hr IV .Q10H [facility] Last Admin: 10/31/18 16:10 Dose: Not Given Insulin Human Regular 100 (units/ Sodium Chloride) 101 mls @ 0 mls/hr IVPB INF AMAN; Protocol Last Admin: 10/30/18 15:03 Dose: 101 mls Dextrose/Water (D5w) 1,000 mls @ 0 mls/hr IV INF PRN PRN Reason: PRN HYPOGLYCEMIC PROTOCOL Insulin Human Lispro (Humalog) 15 units SC TID [facility] Last Admin: 10/31/18 21:21 Dose: 15 unit Insulin Human Regular (Humulin R) 0 units [place] Q4H PRN; Protocol PRN Reason: POST CABG SLIDING SCALE Last Admin: 10/31/18 21:23 Dose: 4 unit Metoprolol Tartrate (Lopressor) 12.5 mg PO BID [facility] Last Admin: 10/31/18 21:22 Dose: 12.5 mg Morphine Sulfate (Morphine) 2 mg SLOW IVP Q15MIN PRN PRN Reason: Severe Pain (7-10) Ondansetron HCl (Zofran) 4 mg IVP Q6H PRN PRN Reason: Nausea/Vomiting Potassium Chloride (Kcl) 20 meq IVPB PRN PRN PRN Reason: K level </= 4.0 Promethazine HCl (Phenergan) 6.25 mg IM Q4H PRN PRN Reason: Nausea/Vomiting Rosuvastatin Calcium (Crestor) 40 mg PO HS [facility] Last Admin: 10/31/18 21:22 Dose: 40 mg Sodium Chloride (Flush - Normal Saline) 10 ml IVF Q12HR [facility] Last Admin: 10/31/18 21:23 Dose: 10 ml Sodium Chloride (Flush - Normal Saline) 10 ml IVF PRN PRN PRN Reason: Saline Flush
[2018-11-01] MEDS: Insulin Regular 300 UNITS/3 ML VIAL SC PRN ×3 (00:32→20:15)
[2018-11-01] MEDS: Sodium Chloride 0.9% 1,000 ML IV SCH ×2 (03:07→16:58)
[2018-11-01] MEDS: HYDROcodone/Acetaminophen 5/325 mg Tablet PO PRN ×3 (04:08→23:28)
[2018-11-01 04:41] LABS: #Lymphocytes 1.3 thou/uL (1.20-3.40); #Monocytes 1.3 thou/uL (0.11-0.59); #Neutrophils 6.5 thou/uL (1.40-6.50); %Basophils 0.3 % (0.0-1.0); %Eosinophils 0.3 % (0.0-10.0); %Lymphocytes 14.4 % (21.0-51.0); %Monocytes 14.2 % (0.0-10.0); %Neutrophils 70.7 % (42.0-75.0); Hemoglobin 9.2 g/dL (14.0-18.0); Mean Corpuscular HGB CONC 32.7 g/dL (32.0-36.0); Mean Corpuscular Hemoglobin 29.8 pg (27.0-31.0); Mean Corpuscular Volume 91.2 fL (78.0-98.0); Mean Platelet Volume 7.2 fL (7.4-10.4); Platelet Count 183 thou/uL (130-400); RBC Distribution Width 13.6 % (11.5-14.5); Red Blood Cell (RBC) Count 3.08 mill/uL (4.70-6.10); White Blood Cell (WBC) Count 9.1 thou/uL (4.8-10.8)
[2018-11-01 05:05] LABS: Anion Gap 12 mmol/L (10-20); BUN (Urea Nitrogen) 22 mg/dL (8.4-25.7); Calc. Creatinine Clearance 69 mL/min (70-130); Calcium 8.8 mg/dL (7.8-10.44); Carbon Dioxide 22 mmol/L (23-31); Chloride 105 mmol/L (98-107); Estimated GFR-MDRD 54; Glucose 139 mg/dL (80-115); Potassium 4.1 mmol/L (3.5-5.1); Sodium 135 mmol/L (136-145)
--- NOTE | 2018-11-01 08:20 | RAD ---
SINGLE VIEW OF THE CHEST: COMPARISON: 10/31/2018. HISTORY: Status post open heart surgery. FINDINGS: A single view of the chest shows an enlarged but stable cardiomediastinal silhouette. The patient is status post CABG. The pacemaker and central venous catheter are unchanged in position. There is no evidence of consolidation, mass, or pleural effusion. IMPRESSION: Stable exam. POS: SHEREEN
[2018-11-01] MEDS: Digoxin 0.25 MG TAB PO SCH (08:48)
[2018-11-01] MEDS: Metoprolol Tartrate 25 MG TAB PO SCH (08:48)
[2018-11-01] MEDS: Aspirin 325 MG TAB PO SCH (08:48)
[2018-11-01] MEDS: Enoxaparin Sodium 40 MG/0.4 ML SYRINGE SC SCH (08:50)
[2018-11-01] MEDS: HumaLOG 300 UNITS/3 ML VIAL SC SCH ×2 (08:51→15:35)
[2018-11-01] MEDS ORDERED: Polyethylene Glycol 3350 17 GM Packet PO SCH (09:00)
[2018-11-01] MEDS: Doxycycline 100 MG CAP PO SCH ×2 (11:55→20:10)
[2018-11-01] MEDS ORDERED: Mineral Oil ENEMA PR PRN (17:28)
[2018-11-01] MEDS ORDERED: Bisacodyl 10 MG SUPP PR PRN (17:28)
[2018-11-01] MEDS ORDERED: Acetaminophen 325 MG TAB PO PRN (17:28)
[2018-11-01] MEDS ORDERED: Nitroglycerin 0.4 MG TAB (25 Tab Bottle) SL PRN (17:28)
[2018-11-01] MEDS ORDERED: Guaifenesin DM 100-10/5 ML UDCUP PO PRN (17:28)
[2018-11-01] MEDS ORDERED: Mag-Al 1200 mg/1200 mg/30 ML UDCUP PO PRN (17:28)
[2018-11-01] MEDS ORDERED: Fentanyl 100 MCG/2 ML VIAL SLOW IVP PRN (17:28)
[2018-11-01] MEDS ORDERED: HYDROcodone/Acetaminophen 5/325 mg Tablet PO PRN (17:28)
[2018-11-01] MEDS ORDERED: Bisacodyl 5 MG TAB PO PRN (17:28)
[2018-11-01] MEDS: Potassium Chloride 10 MEQ TAB PO SCH (17:50)
[2018-11-01] MEDS ORDERED: HUMULIN R 100 UNITS in Sodium Chloride 0.9% 100 ML IVPB SCH (17:51)
[2018-11-01] MEDS ORDERED: Dextrose 50% Abboject 50 ML SYRINGE SLOW IVP PRN (17:51)
[2018-11-01] MEDS ORDERED: Dextrose 5% in Water 1,000 ML IV PRN ×2 (17:51→17:55)
[2018-11-01] MEDS: Furosemide 40 MG TAB PO SCH (17:52)
--- NOTE | 2018-11-01 17:53 | PDOC.PN ---
- Subjective Encounter Start Date: 11/01/18 Encounter Start Time: 09:30 Patient seen and examined for med mngt. No CP/Palpitations. No new complaints. No overnight events - Objective Resuscitation Status - Order Detail: 10/29/18 20:35 Resuscitation Status Routine Resuscitation Status: FULL: Full Resuscitation Discussed with: Patient MAR Reviewed: Yes Vital Signs & Weight: Vital Signs (12 hours) Temp Pulse Pulse Pulse Resp BP BP 11/01/18 16:45 98.2 F 80 17 11/01/18 16:00 98.9 F 11/01/18 14:27 80 88 137/57 L 152/52 H 11/01/18 12:00 98.1 F 11/01/18 08:48 80 11/01/18 08:00 97.9 F 11/01/18 07:54 11/01/18 07:29 11/01/18 07:00 97.9 F BP Pulse Ox Pulse Ox 11/01/18 16:45 154/66 H 93 L 11/01/18 16:00 11/01/18 14:27 97 11/01/18 12:00 11/01/18 08:48 11/01/18 08:00 11/01/18 07:54 96 11/01/18 07:29 95 11/01/18 07:00 Weight Weight 200 lb Most Recent Monitor Data Heart Rate from ECG 80 NIBP 140/60 NIBP BP-Mean 94 Respiration from ECG 16 SpO2 94 I&O: 10/31/18 11/01/18 11/02/18 06:59 06:59 06:59 Intake Total 2508.9 1867 540 Output Total 875 790 525 Balance 1633.9 1077 15 Result Diagrams: 11/01/18 04:35 11/01/18 04:35 Additional Labs: Accuchecks 11/01/18 11/01/18 11/01/18 16:31 11:43 03:56 POC Glucose 256 H 177 H 149 H 11/01/18 10/31/18 00:09 21:09 POC Glucose 144 H 161 H Radiology Reviewed by me: Yes (CXR - Stable) EKG Reviewed by me: Yes (Tele SR) Phys Exam - Physical Examination Constitutional: NAD Respiratory: no wheezing, no rhonchi Cardiovascular: RRR, no rub Gastrointestinal: soft, non-tender, positive bowel sounds Musculoskeletal: no edema Neurological: moves all 4 limbs Dx/Plan (1) DM2 (diabetes mellitus, type 2) Status: Chronic Qualifiers: Chronic kidney disease stage: stage 2 (mild) (2) HTN (hypertension) Code(s): I10 - ESSENTIAL (PRIMARY) HYPERTENSION Status: Chronic (3) HLD (hyperlipidemia) Code(s): E78.5 - HYPERLIPIDEMIA, UNSPECIFIED Status: Chronic (4) CHRIS (obstructive sleep apnea) Code(s): G47.33 - OBSTRUCTIVE SLEEP APNEA (ADULT) (PEDIATRIC) Status: Chronic (5) CKD (chronic kidney disease) stage 3, GFR 30-59 ml/min Code(s): N18.3 - CHRONIC KIDNEY DISEASE, STAGE 3 (MODERATE) Status: Chronic - Plan cont current plan of care, plan discussed w/ family, PT/OT, DVT proph w/SCDs Change insulin to 20 units TID-WM -: Cont CABG sliding scale -: Add 0200 Acucheck - can use bedtime scale -: Cont supportive care -: Metoprolol increased to 25 mg BID Review of Systems - Medications/Allergies Allergies/Adverse Reactions: Allergies Allergy/AdvReac Type Severity Reaction Status Date / Time No Known Allergies Allergy Verified 10/30/18 04:56 Medications: Current Medications Acetaminophen (Tylenol) 650 mg PO Q6H PRN PRN Reason: Headache/Fever or Pain Hydrocodone Bitart/Acetaminophen ([place] 5/325) 1 tab PO Q4H PRN PRN Reason: Moderate Pain (4-6) Hydrocodone Bitart/Acetaminophen ([place] 5/325) 2 tab PO Q4H PRN PRN Reason: Severe Pain (7-10) Al Hydroxide/Mg Hydroxide (Maalox) 30 ml PO Q4H PRN PRN Reason: Indigestion Albuterol/Ipratropium (Duoneb) 3 ml NEB Q6H PRN PRN Reason: Respiratory Distress Aspirin (Ecotrin) 325 mg PO DAILY [facility] Bisacodyl (Dulcolax) 10 mg PO Q12H PRN PRN Reason: Constipation Bisacodyl (Dulcolax) 10 mg [place] Q12H PRN PRN Reason: Constipation Digoxin (Lanoxin) 0.25 mg PO DAILY [facility] Last Admin: 11/01/18 08:48 Dose: 0.25 mg Doxycycline Hyclate (Vibramycin) 100 mg PO BID [facility] Last Admin: 11/01/18 11:55 Dose: 100 mg Enoxaparin Sodium (Lovenox) 40 mg SC 0900 [facility] Last Admin: 11/01/18 08:50 Dose: 40 mg Famotidine (Pepcid) 20 mg PO BID [facility] Fentanyl (Sublimaze) 50 mcg SLOW IVP Q2H PRN PRN Reason: Severe breakthrough pain Stop: 11/01/18 23:00 Furosemide (Lasix) 40 mg PO 0600,1800 [facility] Guaifenesin/Dextromethorphan (Robitussin Dm) 15 ml PO Q4H PRN PRN Reason: Cough Insulin Human Lispro (Humalog) 15 units SC TID [facility] Last Admin: 11/01/18 15:35 Dose: 15 unit Metoprolol Tartrate (Lopressor) 25 mg PO BID [facility] Mineral Oil (Fleet Mineral Oil) 133 ml [place] DAILYPRN PRN PRN Reason: Constipation Miscellaneous Medication (Post-Op Sliding Scale) 1 each FS ONE ONE Stop: 11/01/18 17:29 Nitroglycerin (Nitrostat) 0.4 mg SL Q5MIN PRN PRN Reason: Chest Pain Polyethylene Glycol (Miralax) 17 gm PO DAILY [facility] Last Admin: 11/01/18 17:51 Dose: Not Given Potassium Chloride (Klor-Con 10) 10 meq PO QAM-WM [facility] Last Admin: 11/01/18 17:50 Dose: Not Given Simvastatin (Zocor) 40 mg PO HS [facility]
[2018-11-01] MEDS: Famotidine 20 MG TAB PO SCH (20:10)
[2018-11-01] MEDS: Senokot S 8.6-50 MG TAB PO SCH (20:10)
[2018-11-01] MEDS ORDERED: Metoprolol Tartrate 25 MG TAB PO SCH (21:00)
[2018-11-01] MEDS ORDERED: Simvastatin 40 MG TAB PO SCH (21:00)
[2018-11-02] MEDS ORDERED: Insulin Regular 300 UNITS/3 ML VIAL SC PRN (03:18)
[2018-11-02] MEDS: Furosemide 40 MG TAB PO SCH ×2 (06:15→18:25)
[2018-11-02 06:28] LABS: Anion Gap 13 mmol/L (10-20); BUN (Urea Nitrogen) 22 mg/dL (8.4-25.7); Calc. Creatinine Clearance 70 mL/min (70-130); Calcium 8.7 mg/dL (7.8-10.44); Carbon Dioxide 21 mmol/L (23-31); Chloride 104 mmol/L (98-107); Estimated GFR-MDRD 55; Glucose 224 mg/dL (80-115); Magnesium 1.7 mg/dL (1.6-2.6); Potassium 4.2 mmol/L (3.5-5.1); Sodium 134 mmol/L (136-145)
[2018-11-02] MEDS ORDERED: Metoprolol Tartrate 25 MG TAB PO SCH ×3 (09:00→21:00)
[2018-11-02] MEDS: Insulin Regular 300 UNITS/3 ML VIAL SC SCH ×2 (09:16→12:11)
[2018-11-02] MEDS: Insulin Glargine 15 UNITS in Pre-Filled Syringe 1 EACH SC SCH ×2 (09:16→20:30)
[2018-11-02] MEDS: Digoxin 0.25 MG TAB PO SCH (09:20)
[2018-11-02] MEDS: Aspirin 325 mg Enteric Coated Tablet PO SCH (09:21)
[2018-11-02] MEDS: Potassium Chloride 10 MEQ TAB PO SCH (09:21)
[2018-11-02] MEDS: Polyethylene Glycol 3350 17 GM Packet PO SCH (09:21)
[2018-11-02] MEDS: Famotidine 20 MG TAB PO SCH ×2 (09:21→20:30)
[2018-11-02] MEDS: Senokot S 8.6-50 MG TAB PO SCH ×2 (09:21→20:30)
[2018-11-02] MEDS: Doxycycline 100 MG CAP PO SCH ×2 (09:22→20:29)
[2018-11-02] MEDS: Enoxaparin Sodium 40 MG/0.4 ML SYRINGE SC SCH (09:23)
[2018-11-02] MEDS: Insulin Regular 300 UNITS/3 ML VIAL SC PRN ×2 (12:14→16:53)
[2018-11-02] MEDS ORDERED: Insulin Regular 300 UNITS/3 ML VIAL SC SCH (16:30)
[2018-11-02] MEDS: Mupirocin 2% Ointment 22 GM Tube TOP SCH (17:14)
[2018-11-02] MEDS: Rosuvastatin 20 MG TAB PO SCH (20:39)
--- NOTE | 2018-11-02 21:26 | PDOC.PN ---
- Subjective Encounter Start Date: 11/02/18 Encounter Start Time: 11:30 Patient seen and examined for med mngt. No new complaints. No overnight events - Objective Resuscitation Status - Order Detail: 10/29/18 20:35 Resuscitation Status Routine Resuscitation Status: FULL: Full Resuscitation Discussed with: Patient CORBY Reviewed: Yes Vital Signs & Weight: Vital Signs (12 hours) Temp Pulse Pulse Pulse Resp BP BP 11/02/18 20:00 98.4 F 81 20 11/02/18 16:00 98.6 F 80 18 11/02/18 15:56 82 75 130/67 158/77 H 11/02/18 12:10 97.5 F L 80 18 BP BP Pulse Ox 11/02/18 20:00 133/60 95 11/02/18 16:00 141/64 H 11/02/18 15:56 11/02/18 12:10 154/72 H Weight Admit Weight 200 lb Weight 200 lb Most Recent Monitor Data Heart Rate from ECG 80 NIBP 140/60 NIBP BP-Mean 94 Respiration from ECG 16 SpO2 94 I&O: 11/01/18 11/02/18 11/03/18 06:59 06:59 06:59 Intake Total 1867 1020 Output Total 790 2975 Balance 1077 -1955 Result Diagrams: 11/01/18 04:35 11/02/18 05:21 Additional Labs: Accuchecks 11/02/18 11/02/18 11/02/18 20:07 16:04 11:27 POC Glucose 187 H 195 H 254 H 11/02/18 11/02/18 05:00 02:05 POC Glucose 262 H 267 H EKG Reviewed by me: Yes (Tele paced) Phys Exam - Physical Examination Constitutional: NAD Respiratory: no wheezing, no rhonchi Cardiovascular: RRR, no rub Gastrointestinal: soft, non-tender, positive bowel sounds Neurological: moves all 4 limbs Dx/Plan (1) DM2 (diabetes mellitus, type 2) Status: Chronic Qualifiers: Chronic kidney disease stage: stage 3 (moderate) (2) HTN (hypertension) Code(s): I10 - ESSENTIAL (PRIMARY) HYPERTENSION Status: Chronic (3) HLD (hyperlipidemia) Code(s): E78.5 - HYPERLIPIDEMIA, UNSPECIFIED Status: Chronic (4) CHRIS (obstructive sleep apnea) Code(s): G47.33 - OBSTRUCTIVE SLEEP APNEA (ADULT) (PEDIATRIC) Status: Chronic - Plan cont current plan of care, DVT proph w/lovenox, DVT proph w/SCDs Cont Regular insulin 20 units TID-WM with sliding scale -: Lantus 15 units BID started today -: On Metoprolol, ASA, Digoxin and Statins -: On Diuretics Review of Systems - Review of Systems Respiratory: negative: Cough, Dry, Shortness of Breath, Hemoptysis, SOB with Excertion, Pleuritic Pain, Sputum, Wheezing Cardiovascular: negative: chest pain, palpitations, orthopnea, paroxysmal nocturnal dyspnea, edema, light headedness, other - Medications/Allergies Allergies/Adverse Reactions: Allergies Allergy/AdvReac Type Severity Reaction Status Date / Time No Known Allergies Allergy Verified 10/30/18 04:56 Medications: Current Medications Acetaminophen (Tylenol) 650 mg PO Q6H PRN PRN Reason: Headache/Fever or Pain Hydrocodone Bitart/Acetaminophen ([place] 5/325) 1 tab PO Q4H PRN PRN Reason: Moderate Pain (4-6) Last Admin: 11/02/18 18:45 Dose: 1 tab Hydrocodone Bitart/Acetaminophen ([place] 5/325) 2 tab PO Q4H PRN PRN Reason: Severe Pain (7-10) Last Admin: 11/01/18 23:28 Dose: 2 tab Al Hydroxide/Mg Hydroxide (Maalox) 30 ml PO Q4H PRN PRN Reason: Indigestion Albuterol/Ipratropium (Duoneb) 3 ml NEB Q6H PRN PRN Reason: Respiratory Distress Aspirin (Ecotrin) 325 mg PO DAILY [facility] Last Admin: 11/02/18 09:21 Dose: 325 mg Bisacodyl (Dulcolax) 10 mg PO Q12H PRN PRN Reason: Constipation Bisacodyl (Dulcolax) 10 mg [place] Q12H PRN PRN Reason: Constipation Dextrose/Water (Dextrose 50%) 25 gm SLOW IVP PRN PRN PRN Reason: PER HYPOGLYCEMIC PROTOCOL Digoxin (Lanoxin) 0.25 mg PO DAILY [facility] Last Admin: 11/02/18 09:20 Dose: 0.25 mg Doxycycline Hyclate (Vibramycin) 100 mg PO BID [facility] Last Admin: 11/02/18 20:29 Dose: 100 mg Enoxaparin Sodium (Lovenox) 40 mg SC 0900 [facility] Last Admin: 11/02/18 09:23 Dose: 40 mg Famotidine (Pepcid) 20 mg PO BID [facility] Last Admin: 11/02/18 20:30 Dose: 20 mg Furosemide (Lasix) 40 mg PO 0600,1800 [facility] Last Admin: 11/02/18 18:25 Dose: 40 mg Glucagon (Glucagon) 1 mg SC PRN PRN PRN Reason: PER HYPOGLYCEMIC PROTOCOL Guaifenesin/Dextromethorphan (Robitussin Dm) 15 ml PO Q4H PRN PRN Reason: Cough Dextrose/Water (D5w) 1,000 mls @ 0 mls/hr IV .Q0M PRN PRN Reason: Hypoglycemia Insulin Glargine 15 units/ (Miscellaneous Medication) 0.15 mls @ 0 mls/hr SC HS [facility] Last Admin: 11/02/18 20:30 Dose: 0.15 mls Insulin Glargine 15 units/ (Miscellaneous Medication) 0.15 mls @ 0 mls/hr SC QAM [facility] Last Admin: 11/02/18 09:16 Dose: 0.15 mls Insulin Human Regular (Humulin R) 0 units [place] Q4H PRN; Protocol PRN Reason: POST OP SLIDING SCALE Last Admin: 11/02/18 16:53 Dose: 4 unit Insulin Human Regular (Humulin R) 20 units SC 0730 [facility] Last Admin: 11/02/18 09:16 Dose: 20 unit Insulin Human Regular (Humulin R) 20 units SC 1130 [facility] Last Admin: 11/02/18 12:11 Dose: 20 unit Insulin Human Regular (Humulin R) 20 units SC 1630 [facility] Last Admin: 11/02/18 16:53 Dose: 20 unit Metoprolol Tartrate (Lopressor) 75 mg PO BID [facility] Last Admin: 11/02/18 20:30 Dose: 75 mg Mineral Oil (Fleet Mineral Oil) 133 ml [place] DAILYPRN PRN PRN Reason: Constipation Mupirocin (Bactroban 2% Ointment) 0 gm TOP 1500 [facility] Last Admin: 11/02/18 17:14 Dose: 1 applic Nitroglycerin (Nitrostat) 0.4 mg SL Q5MIN PRN PRN Reason: Chest Pain Polyethylene Glycol (Miralax) 17 gm PO DAILY [facility] Last Admin: 11/02/18 09:21 Dose: 17 gm Potassium Chloride (Klor-Con 10) 10 meq PO QAM-WM [facility] Last Admin: 11/02/18 09:21 Dose: 10 meq Rosuvastatin Calcium (Crestor) 40 mg PO HS [facility] Last Admin: 11/02/18 20:39 Dose: 40 mg Senna/Docusate Sodium (Senokot S) 1 tab PO BID [facility] Last Admin: 11/02/18 20:30 Dose: 1 tab
[2018-11-03] MEDS: HYDROcodone/Acetaminophen 5/325 mg Tablet PO PRN ×2 (06:44→12:33)
[2018-11-03] MEDS: Furosemide 40 MG TAB PO SCH ×2 (06:44→18:03)
[2018-11-03] MEDS ORDERED: Metoprolol Tartrate 25 MG TAB PO SCH (08:23)
[2018-11-03] MEDS ORDERED: Metolazone 5 MG TAB PO SCH (08:30)
[2018-11-03] MEDS: Insulin Glargine 15 UNITS in Pre-Filled Syringe 1 EACH SC SCH ×2 (08:32→21:11)
[2018-11-03] MEDS: Insulin Regular 300 UNITS/3 ML VIAL SC SCH ×2 (08:33→12:36)
[2018-11-03] MEDS: Senokot S 8.6-50 MG TAB PO SCH ×2 (08:40→21:11)
[2018-11-03] MEDS: Potassium Chloride 10 MEQ TAB PO SCH (08:40)
[2018-11-03] MEDS: Digoxin 0.25 MG TAB PO SCH (08:40)
[2018-11-03] MEDS: Polyethylene Glycol 3350 17 GM Packet PO SCH (08:40)
[2018-11-03] MEDS: Enoxaparin Sodium 40 MG/0.4 ML SYRINGE SC SCH (08:41)
[2018-11-03] MEDS: Famotidine 20 MG TAB PO SCH ×2 (08:41→21:11)
[2018-11-03] MEDS: Doxycycline 100 MG CAP PO SCH ×2 (08:41→21:08)
[2018-11-03] MEDS: Aspirin 325 mg Enteric Coated Tablet PO SCH (08:42)
[2018-11-03] MEDS: Metoprolol Tartrate 100 MG TAB PO SCH ×2 (08:50→21:11)
[2018-11-03] MEDS: Insulin Regular 300 UNITS/3 ML VIAL SC PRN (12:37)
[2018-11-03] MEDS ORDERED: Insulin Regular 300 UNITS/3 ML VIAL SC SCH ×3 (15:34)
[2018-11-03] MEDS: Mupirocin 2% Ointment 22 GM Tube TOP SCH (16:35)
--- NOTE | 2018-11-03 19:22 | PDOC.EVN ---
Event Note - Event Note Event Note: RN called - Sugar 78. Will reduce AC insulin to 15 units TID-WM + sliding scale Cont Lantus 20 QAM and 15 HS Check sugar at 0200 - Can use bedtime scale
[2018-11-03] MEDS: Rosuvastatin 20 MG TAB PO SCH (21:10)
--- NOTE | 2018-11-03 22:15 | PDOC.PN ---
- Subjective Encounter Start Date: 11/03/18 Encounter Start Time: 17:00 Patient seen and examined for med mngt. No new complaints. No overnight events - Objective Resuscitation Status - Order Detail: 10/29/18 20:35 Resuscitation Status Routine Resuscitation Status: FULL: Full Resuscitation Discussed with: Patient CORBY Reviewed: Yes Vital Signs & Weight: Vital Signs (12 hours) Temp Pulse Pulse Resp BP BP BP 11/03/18 16:45 98.3 F 83 18 169/74 H 11/03/18 15:15 81 136/72 11/03/18 12:15 97.4 F L 83 16 120/67 Pulse Ox 11/03/18 16:45 11/03/18 15:15 96 11/03/18 12:15 Weight Admit Weight 200 lb Weight 228 lb 3.2 oz Most Recent Monitor Data Heart Rate from ECG 80 NIBP 140/60 NIBP BP-Mean 94 Respiration from ECG 16 SpO2 94 I&O: 11/02/18 11/03/18 11/04/18 06:59 06:59 06:59 Intake Total 1020 510 Output Total 7845 1425 1950 Balance -1955 -1425 -1440 Result Diagrams: 11/01/18 04:35 11/02/18 05:21 Additional Labs: Accuchecks 11/03/18 11/03/18 11/03/18 20:54 16:32 11:16 POC Glucose 151 H 78 298 H 11/03/18 05:12 POC Glucose 154 H EKG Reviewed by me: Yes (Tele paced) Phys Exam - Physical Examination Constitutional: NAD Respiratory: no wheezing, no rhonchi Cardiovascular: RRR, no rub Gastrointestinal: soft, non-tender, positive bowel sounds Musculoskeletal: no edema Neurological: moves all 4 limbs Dx/Plan (1) DM2 (diabetes mellitus, type 2) Status: Chronic Qualifiers: Chronic kidney disease stage: stage 3 (moderate) (2) HTN (hypertension) Code(s): I10 - ESSENTIAL (PRIMARY) HYPERTENSION Status: Chronic (3) HLD (hyperlipidemia) Code(s): E78.5 - HYPERLIPIDEMIA, UNSPECIFIED Status: Chronic (4) CHRIS (obstructive sleep apnea) Code(s): G47.33 - OBSTRUCTIVE SLEEP APNEA (ADULT) (PEDIATRIC) Status: Chronic - Plan cont current plan of care, DVT proph w/lovenox, DVT proph w/SCDs Will reduce AC insulin to 15 units TID-WM + sliding scale Cont Lantus 20 QAM and 15 HS Check sugar at 0200 - Can use bedtime scale Cont Metoprolol/Digoxin Cont other meds as below Review of Systems - Review of Systems Respiratory: negative: Cough, Dry, Shortness of Breath, Hemoptysis, SOB with Excertion, Pleuritic Pain, Sputum, Wheezing Cardiovascular: negative: chest pain, palpitations, orthopnea, paroxysmal nocturnal dyspnea, edema, light headedness, other - Medications/Allergies Allergies/Adverse Reactions: Allergies Allergy/AdvReac Type Severity Reaction Status Date / Time No Known Allergies Allergy Verified 10/30/18 04:56 Medications: Current Medications Acetaminophen (Tylenol) 650 mg PO Q6H PRN PRN Reason: Headache/Fever or Pain Hydrocodone Bitart/Acetaminophen ([place] 5/325) 1 tab PO Q4H PRN PRN Reason: Moderate Pain (4-6) Last Admin: 11/02/18 18:45 Dose: 1 tab Hydrocodone Bitart/Acetaminophen ([place] 5/325) 2 tab PO Q4H PRN PRN Reason: Severe Pain (7-10) Last Admin: 11/03/18 12:33 Dose: 2 tab Al Hydroxide/Mg Hydroxide (Maalox) 30 ml PO Q4H PRN PRN Reason: Indigestion Albuterol/Ipratropium (Duoneb) 3 ml NEB Q6H PRN PRN Reason: Respiratory Distress Aspirin (Ecotrin) 325 mg PO DAILY [facility] Last Admin: 11/03/18 08:42 Dose: 325 mg Bisacodyl (Dulcolax) 10 mg PO Q12H PRN PRN Reason: Constipation Bisacodyl (Dulcolax) 10 mg [place] Q12H PRN PRN Reason: Constipation Dextrose/Water (Dextrose 50%) 25 gm SLOW IVP PRN PRN PRN Reason: PER HYPOGLYCEMIC PROTOCOL Digoxin (Lanoxin) 0.25 mg PO DAILY [facility] Last Admin: 11/03/18 08:40 Dose: 0.25 mg Doxycycline Hyclate (Vibramycin) 100 mg PO BID [facility] Last Admin: 11/03/18 21:08 Dose: 100 mg Enoxaparin Sodium (Lovenox) 40 mg SC 0900 [facility] Last Admin: 11/03/18 08:41 Dose: 40 mg Famotidine (Pepcid) 20 mg PO BID [facility] Last Admin: 11/03/18 21:11 Dose: 20 mg Furosemide (Lasix) 40 mg PO 0600,1800 [facility] Last Admin: 11/03/18 18:03 Dose: 40 mg Glucagon (Glucagon) 1 mg [place] PRN PRN PRN Reason: PER HYPOGLYCEMIC PROTOCOL Guaifenesin/Dextromethorphan (Robitussin Dm) 15 ml PO Q4H PRN PRN Reason: Cough Dextrose/Water (D5w) 1,000 mls @ 0 mls/hr IV .Q0M PRN PRN Reason: Hypoglycemia Insulin Glargine 15 units/ (Miscellaneous Medication) 0.15 mls @ 0 mls/hr SC [facility] Last Admin: 11/03/18 21:11 Dose: 0.15 mls Insulin Glargine 20 units/ (Miscellaneous Medication) 0.2 mls @ 0 mls/hr SC QAM [facility] Insulin Human Regular (Humulin R) 0 units [place] Q4H PRN; Protocol PRN Reason: POST OP SLIDING SCALE Last Admin: 11/03/18 12:37 Dose: 8 unit Insulin Human Regular (Humulin R) 15 units SC 0730 [facility] Insulin Human Regular (Humulin R) 15 units SC 1130 [facility] Insulin Human Regular (Humulin R) 15 units SC 1630 [facility] Metoprolol Tartrate (Lopressor) 100 mg PO BID [facility] Last Admin: 11/03/18 21:11 Dose: 100 mg Mineral Oil (Fleet Mineral Oil) 133 ml [place] DAILYPRN PRN PRN Reason: Constipation Mupirocin (Bactroban 2% Ointment) 0 gm TOP 1500 [facility] Last Admin: 11/03/18 16:35 Dose: 1 applic Nitroglycerin (Nitrostat) 0.4 mg SL Q5MIN PRN PRN Reason: Chest Pain Polyethylene Glycol (Miralax) 17 gm PO DAILY [facility] Last Admin: 11/03/18 08:40 Dose: 17 gm Potassium Chloride (Klor-Con 10) 10 meq [facility] Last Admin: 11/03/18 08:40 Dose: 10 meq Rosuvastatin Calcium (Crestor) 40 mg PO [facility] Last Admin: 11/03/18 21:10 Dose: 40 mg Senna/Docusate Sodium (Senokot S) 1 tab PO BID [facility] Last Admin: 11/03/18 21:11 Dose: 1 tab
[2018-11-04] MEDS: Furosemide 40 MG TAB PO SCH ×2 (06:21→17:57)
[2018-11-04] MEDS: Insulin Regular 300 UNITS/3 ML VIAL SC SCH ×4 (08:38→17:45)
[2018-11-04] MEDS: Digoxin 0.25 MG TAB PO SCH (08:39)
[2018-11-04] MEDS: Doxycycline 100 MG CAP PO SCH ×2 (08:39→20:37)
[2018-11-04] MEDS: Famotidine 20 MG TAB PO SCH ×2 (08:40→20:37)
[2018-11-04] MEDS: Enoxaparin Sodium 40 MG/0.4 ML SYRINGE SC SCH (08:40)
[2018-11-04] MEDS: Aspirin 325 mg Enteric Coated Tablet PO SCH (08:40)
[2018-11-04] MEDS: Senokot S 8.6-50 MG TAB PO SCH ×2 (08:40→20:37)
[2018-11-04] MEDS: Metoprolol Tartrate 100 MG TAB PO SCH ×2 (08:40→20:37)
[2018-11-04] MEDS: Potassium Chloride 10 MEQ TAB PO SCH (08:40)
[2018-11-04] MEDS: Insulin Glargine 20 UNITS in Pre-Filled Syringe 1 EACH SC SCH (08:41)
[2018-11-04] MEDS: Polyethylene Glycol 3350 17 GM Packet PO SCH (09:07)
[2018-11-04] MEDS: HYDROcodone/Acetaminophen 5/325 mg Tablet PO PRN (13:53)
[2018-11-04] MEDS: Mupirocin 2% Ointment 22 GM Tube TOP SCH (13:54)
--- NOTE | 2018-11-04 19:25 | PDOC.PN ---
- Subjective Encounter Start Date: 11/04/18 Encounter Start Time: 09:45 Patient seen and examined for med mngt. No new complaints. No overnight events - Objective Resuscitation Status - Order Detail: 10/29/18 20:35 Resuscitation Status Routine Resuscitation Status: FULL: Full Resuscitation Discussed with: Patient CORBY Reviewed: Yes Vital Signs & Weight: Vital Signs (12 hours) Temp Pulse Resp BP BP Pulse Ox 11/04/18 15:07 98.2 F 74 18 108/60 96 11/04/18 12:00 98.1 F 74 18 118/60 93 L 11/04/18 08:39 79 11/04/18 07:50 98 F 83 16 130/64 94 L Weight Admit Weight 200 lb Weight 221 lb 14.4 oz Most Recent Monitor Data Heart Rate from ECG 80 NIBP 140/60 NIBP BP-Mean 94 Respiration from ECG 16 SpO2 94 I&O: 11/03/18 11/04/18 11/05/18 06:59 06:59 06:59 Intake Total 990 480 Output Total 9671 8625 Balance -1425 -1586 480 Result Diagrams: 11/01/18 04:35 11/02/18 05:21 Additional Labs: Accuchecks 11/04/18 11/04/18 11/04/18 16:52 11:12 05:33 POC Glucose 145 H 303 H 169 H 11/04/18 11/03/18 01:57 20:54 POC Glucose 185 H 151 H EKG Reviewed by me: Yes (Tele SR) Phys Exam - Physical Examination Constitutional: NAD Respiratory: no wheezing Cardiovascular: RRR Dx/Plan (1) DM2 (diabetes mellitus, type 2) Status: Chronic Qualifiers: Chronic kidney disease stage: stage 3 (moderate) (2) HTN (hypertension) Code(s): I10 - ESSENTIAL (PRIMARY) HYPERTENSION Status: Chronic (3) HLD (hyperlipidemia) Code(s): E78.5 - HYPERLIPIDEMIA, UNSPECIFIED Status: Chronic (4) CHRIS (obstructive sleep apnea) Code(s): G47.33 - OBSTRUCTIVE SLEEP APNEA (ADULT) (PEDIATRIC) Status: Chronic - Plan cont current plan of care, plan discussed w/ family, DVT proph w/SCDs Cont current dose of Lantus and sliding scale -: AM labs -: Cont other meds as below Review of Systems - Review of Systems Respiratory: negative: Cough, Dry, Shortness of Breath, Hemoptysis, SOB with Excertion, Pleuritic Pain, Sputum, Wheezing Cardiovascular: negative: chest pain, palpitations, orthopnea, paroxysmal nocturnal dyspnea, edema, light headedness, other - Medications/Allergies Allergies/Adverse Reactions: Allergies Allergy/AdvReac Type Severity Reaction Status Date / Time No Known Allergies Allergy Verified 10/30/18 04:56 Medications: Current Medications Acetaminophen (Tylenol) 650 mg PO Q6H PRN PRN Reason: Headache/Fever or Pain Hydrocodone Bitart/Acetaminophen ([place] 5/325) 1 tab PO Q4H PRN PRN Reason: Moderate Pain (4-6) Last Admin: 11/02/18 18:45 Dose: 1 tab Hydrocodone Bitart/Acetaminophen ([place] 5/325) 2 tab PO Q4H PRN PRN Reason: Severe Pain (7-10) Last Admin: 11/04/18 13:53 Dose: 2 tab Al Hydroxide/Mg Hydroxide (Maalox) 30 ml PO Q4H PRN PRN Reason: Indigestion Albuterol/Ipratropium (Duoneb) 3 ml NEB Q6H PRN PRN Reason: Respiratory Distress Aspirin (Ecotrin) 325 mg PO DAILY [facility] Last Admin: 11/04/18 08:40 Dose: 325 mg Bisacodyl (Dulcolax) 10 mg PO Q12H PRN PRN Reason: Constipation Bisacodyl (Dulcolax) [address] Q12H PRN PRN Reason: Constipation Dextrose/Water (Dextrose 50%) 25 gm SLOW IVP PRN PRN PRN Reason: PER HYPOGLYCEMIC PROTOCOL Digoxin (Lanoxin) 0.25 mg PO DAILY [facility] Last Admin: 11/04/18 08:39 Dose: 0.25 mg Doxycycline Hyclate (Vibramycin) 100 mg PO BID [facility] Last Admin: 11/04/18 08:39 Dose: 100 mg Enoxaparin Sodium (Lovenox) 40 mg SC 0900 [facility] Last Admin: 11/04/18 08:40 Dose: 40 mg Famotidine (Pepcid) 20 mg PO BID [facility] Last Admin: 11/04/18 08:40 Dose: 20 mg Furosemide (Lasix) 40 mg PO 0600,1800 [facility] Last Admin: 11/04/18 17:57 Dose: 40 mg Glucagon (Glucagon) 1 mg SC PRN PRN PRN Reason: PER HYPOGLYCEMIC PROTOCOL Guaifenesin/Dextromethorphan (Robitussin Dm) 15 ml PO Q4H PRN PRN Reason: Cough Dextrose/Water (D5w) 1,000 mls @ 0 mls/hr IV .Q0M PRN PRN Reason: Hypoglycemia Insulin Glargine 15 units/ (Miscellaneous Medication) 0.15 mls @ 0 mls/hr SC [facility] Last Admin: 11/03/18 21:11 Dose: 0.15 mls Insulin Glargine 20 units/ (Miscellaneous Medication) 0.2 mls @ 0 mls/hr SC [facility] Last Admin: 11/04/18 08:41 Dose: 0.2 mls Insulin Human Regular (Humulin R) 0 units SC Q4H PRN; Protocol PRN Reason: POST OP SLIDING SCALE Last Admin: 11/03/18 12:37 Dose: 8 unit Insulin Human Regular (Humulin R) 15 units SC 0730 [facility] Last Admin: 11/04/18 09:08 Dose: 15 units Insulin Human Regular (Humulin R) 15 units SC 1130 [facility] Last Admin: 11/04/18 12:33 Dose: 15 unit Insulin Human Regular (Humulin R) 15 units SC 1630 [facility] Last Admin: 11/04/18 17:45 Dose: 15 units Metoprolol Tartrate (Lopressor) 100 mg PO BID [facility] Last Admin: 11/04/18 08:40 Dose: 100 mg Mineral Oil (Fleet Mineral Oil) [address] DAILYPRN PRN PRN Reason: Constipation Mupirocin (Bactroban 2% Ointment) 0 gm TOP 1500 [facility] Last Admin: 11/04/18 13:54 Dose: 1 applic Nitroglycerin (Nitrostat) 0.4 mg SL Q5MIN PRN PRN Reason: Chest Pain Polyethylene Glycol (Miralax) 17 gm PO DAILY [facility] Last Admin: 11/04/18 09:07 Dose: Not Given Potassium Chloride (Klor-Con 10) 10 meq PO [facility] Last Admin: 11/04/18 08:40 Dose: 10 meq Rosuvastatin Calcium (Crestor) 40 mg PO [facility] Last Admin: 11/03/18 21:10 Dose: 40 mg Senna/Docusate Sodium (Senokot S) 1 tab PO BID [facility] Last Admin: 11/04/18 08:40 Dose: 1 tab
[2018-11-04] MEDS: Rosuvastatin 20 MG TAB PO SCH (20:37)
[2018-11-04] MEDS: Insulin Glargine 15 UNITS in Pre-Filled Syringe 1 EACH SC SCH (20:38)
[2018-11-05 05:51] LABS: Hemoglobin 10.7 g/dL (14.0-18.0); Platelet Count 363 thou/uL (130-400)
[2018-11-05] MEDS: Furosemide 40 MG TAB PO SCH (06:05)
[2018-11-05 06:10] LABS: Anion Gap 16 mmol/L (10-20); BUN (Urea Nitrogen) 27 mg/dL (8.4-25.7); Calc. Creatinine Clearance 61 mL/min (70-130); Calcium 9.7 mg/dL (7.8-10.44); Carbon Dioxide 28 mmol/L (23-31); Chloride 93 mmol/L (98-107); Estimated GFR-MDRD 42; Glucose 126 mg/dL (80-115); Magnesium 1.7 mg/dL (1.6-2.6); Potassium 3.3 mmol/L (3.5-5.1); Sodium 134 mmol/L (136-145)
[2018-11-05] MEDS ORDERED: Potassium Chloride 20 MEQ TAB PO SCH (06:30)
[2018-11-05] MEDS ORDERED: Furosemide 40 MG TAB PO SCH (07:30)
[2018-11-05] MEDS: Potassium Chloride 10 MEQ TAB PO SCH (07:44)
[2018-11-05] MEDS: Famotidine 20 MG TAB PO SCH (09:31)
[2018-11-05] MEDS: Senokot S 8.6-50 MG TAB PO SCH (09:31)
[2018-11-05] MEDS: Digoxin 0.25 MG TAB PO SCH (09:31)
[2018-11-05] MEDS: Insulin Glargine 20 UNITS in Pre-Filled Syringe 1 EACH SC SCH (09:31)
[2018-11-05] MEDS: Polyethylene Glycol 3350 17 GM Packet PO SCH (09:31)
[2018-11-05] MEDS: Doxycycline 100 MG CAP PO SCH (09:31)
[2018-11-05] MEDS: Metoprolol Tartrate 100 MG TAB PO SCH (09:31)
[2018-11-05] MEDS: Aspirin 325 mg Enteric Coated Tablet PO SCH (09:31)
[2018-11-05] MEDS: Enoxaparin Sodium 40 MG/0.4 ML SYRINGE SC SCH (09:31)
[2018-11-05] MEDS: Insulin Regular 300 UNITS/3 ML VIAL SC SCH ×3 (09:32→16:47)
[2018-11-05 15:00] VITALS: BMI 29.9
[2018-11-05] MEDS: Mupirocin 2% Ointment 22 GM Tube TOP SCH (15:02)
[2018-11-05 16:46] VITALS: BP 144/65; TEMP 99.2
--- NOTE | 2018-11-06 21:17 | DIS ---
DATE OF ADMISSION: 10/29/2018 DATE OF DISCHARGE: 11/05/2018 DISCHARGE DISPOSITION: Inpatient rehabilitation. ALLERGIES: NO KNOWN DRUG ALLERGIES. THE PATIENT WAS SEEN ON THE DAY OF DISCHARGE. DENIES ANY NEW COMPLAINTS. NO CHEST PAIN, SHORTNESS OF BREATH, OR PALPITATIONS REPORTED. DISCHARGE MEDICATIONS: 1. Doxycycline 100 mg b.i.d. 2. Digoxin 0.25 mg daily. 3. Mupirocin ointment as directed. 4. Please note that the patient was on doxycycline prior to admission. 5. Nitroglycerin as needed. 6. Tylenol as needed. 7. Aspirin 325 mg daily. 8. Lantus 20 units in the morning and 15 at night. 9. Regular insulin 15 units three times daily with meal along with sliding scale. 10. Lopressor 100 mg b.i.d. 11. DuoNeb as needed. 12. MiraLAX daily. 13. Crestor 40 mg q.h.s. 14. Senokot-S one tablet b.i.d. INPATIENT CONSULTANTS: [facility] physician for medical management. ADMITTING PHYSICIAN: Cardiology Service, Dr. Darnell Diaz. CONSULTING PHYSICIAN: Cardiovascular Surgery, Dr. Nunez. BRIEF HOSPITAL COURSE: The patient is a 68-year-old male, who presented to the hospital for elective cardiac catheterization. His cardiac catheterization on 29 October 2018 was consistent with 3-vessel coronary artery disease. He had 70% stenosis in the proximal LAD, 60% in the mid circumflex, 80% in the distal RCA, and 80% in the first obtuse marginal. He underwent coronary artery bypass surgery on [address] Nunez. He was monitored in the intensive care unit closely. Later on, he was transferred to the regular floor. He will be discharged to inpatient rehabilitation. FINAL DIAGNOSES: 1. Abnormal stress test. 2. Three-vessel coronary artery disease, status post coronary artery bypass grafting. 3. Recurrent syncope, status post pacemaker placement in 2012. 4. History of supraventricular tachycardia. 5. Hypertension. 6. Hyperlipidemia. 7. Diabetes mellitus, type 2. 8. Obstructive sleep apnea. 9. Obesity with a BMI of 30. 10. Chronic anemia. 11. Hyponatremia. 12. Hypokalemia. 13. Acute kidney injury with a creatinine of 1.64 at discharge. 14. Chronic kidney disease, stage 2. DISCHARGE INSTRUCTIONS: Repeat basic metabolic profile in 1 week is recommended. Total time coordinating the discharge of this patient was 37 minutes. Job ID: [id number]
== END 2018-11-05 20:40 | DRG 234 ==
LOC: CCL 06:06 → 2NO 18:31 → CCU 10-30 07:04 → 2NO 11-01 16:57
PROVIDERS: ADMIT Internal Medicine Cardiovascular Disease; ATTEND Internal Medicine Cardiovascular Disease
PROC: 4A023N7 Measurement of Cardiac Sampling and Pressure, Left Heart, Percutaneous Approach (ICD-10-PCS; 2018-10-29)
PROC: B2111ZZ Fluoroscopy of Multiple Coronary Arteries using Low Osmolar Contrast (ICD-10-PCS; 2018-10-29)
PROC: 02100Z9 Bypass Coronary Artery, One Artery from Left Internal Mammary, Open Approach (ICD-10-PCS; principal; 2018-10-30)
PROC: 021109W Bypass Coronary Artery, Two Arteries from Aorta with Autologous Venous Tissue, Open Approach (ICD-10-PCS; 2018-10-30)
PROC: 06BP4ZZ Excision of Right Saphenous Vein, Percutaneous Endoscopic Approach (ICD-10-PCS; 2018-10-30)
PROC: 02100AW Bypass Coronary Artery, One Artery from Aorta with Autologous Arterial Tissue, Open Approach (ICD-10-PCS; 2018-10-30)
PROC: 03BC0ZZ Excision of Left Radial Artery, Open Approach (ICD-10-PCS; 2018-10-30)
PROC: 5A1221Z Performance of Cardiac Output, Continuous (ICD-10-PCS; 2018-10-30)
DX: I25.10 Atherosclerotic heart disease of native coronary artery without angina pectoris (principal); E87.1 Hypo-osmolality and hyponatremia; N17.9 Acute kidney failure, unspecified; D63.1 Anemia in chronic kidney disease; E78.00 Pure hypercholesterolemia, unspecified; E11.319 Type 2 diabetes mellitus with unspecified diabetic retinopathy without macular edema; I12.9 Hypertensive chronic kidney disease with stage 1 through stage 4 chronic kidney disease, or unspecified chronic kidney disease; E11.22 Type 2 diabetes mellitus with diabetic chronic kidney disease; N18.3 Chronic kidney disease, stage 3 (moderate); E87.6 Hypokalemia; S82.892D Other fracture of left lower leg, subsequent encounter for closed fracture with routine healing; G47.33 Obstructive sleep apnea (adult) (pediatric); E66.9 Obesity, unspecified; Z95.0 Presence of cardiac pacemaker; Z79.4 Long term (current) use of insulin; Z68.30 Body mass index [BMI] 30.0-30.9, adult
CPT/HCPCS: 36415; 36416; 71045; 80048; 80061; 82805; 83735; 85014; 85018; 85025; 85049; 85347; 85610; 85730; 86850; 86900; 86901; 93005; 93010; 93458; 93798; 94002; 94150; 99152; 99153; C1769; J0670; J1100; J1642; J1644; J1650; J1815; J1825; J2001; J2150; J2250; J2440; J2704; J2720; J3010; J3370; J3475; J3480; J7050; P9045; P9047; Q9967; S0017; S0028